=== PATIENT | male | born 1995 | race Caucasian/White ===

== ENCOUNTER 2023-12-30 02:36 | Emergency (ER) | payer OTHER ==
[~2023-12-30] VITALS: Ht 175.3 cm; Wt 68.0 kg
[~2023-12-30 02:36] MED LIST: Bactrim Ds Tab1 EACH PO; CEPH500 PO; KETO10 PO; Norco 5-325 Ta1 EACH PO
[2023-12-30 03:01] VITALS: BP 143/89
[2023-12-30] MEDS ORDERED: Trimethoprim/Sulfamethoxazole DS Tab PO ONE (03:30)
[2023-12-30] MEDS ORDERED: OxyCODONE 10/Acetamin 325 TABLET PO ONE (03:30)
[2023-12-30 03:42] LABS: BASOPHILS ABSOLUTE AUTO 0.03 K/mm3 (0.00-0.23); BASOPHILS PERCENT AUTO 0 % (0-2); EOSINOPHILS PERCENT AUTO 2 % (0-6); Hematocrit 38.1 % (37.0-53.0); Hemoglobin 12.8 g/dL (13.5-17.5); IMMATURE GRAN ABSOLUTE AUTO 0.04 K/mm3 (0.00-0.10); IMMATURE GRAN PERCENT AUTO 0 % (0-1); LYMPHOCYTES ABSOLUTE AUTO 1.76 K/mm3 (0.84-5.20); LYMPHOCYTES PERCENT AUTO 17 % (21-46); MONOCYTES ABSOLUTE AUTO 0.79 K/mm3 (0.16-1.47); MONOCYTES PERCENT AUTO 8 % (4-13); Mean Corpuscular HGB 29.8 pg (26.0-34.0); Mean Corpuscular HGB Conc 33.6 g/dL (31.5-36.5); Mean Corpuscular Volume 89 fL (80-100); Mean Platelet Volume 9.4 fL (9.1-12.4); NEUTROPHILS ABSOLUTE AUTO 7.58 K/mm3 (1.96-9.15); NEUTROPHILS PERCENT AUTO 73 % (41-73); Platelet Count 306 K/mm3 (150-400); RDW Coefficient Variation 12.5 % (11.7-14.2); Red Blood Cell Count 4.29 M/mm3 (4.30-5.90)
[2023-12-30 04:09] LABS: Bun/Creatinine Ratio 17.6 (12.0-20.0); C-REACTIVE PROTEIN, EXT RANGE 3.6 mg/dL (0.000-0.300); Calcium, Blood 9.2 mg/dL (8.5-10.1); Creatinine, Blood 0.91 mg/dL (0.60-1.20); Potassium, Blood 3.6 mmol/L (3.5-5.5)
[2023-12-30] MEDS ORDERED: SULTRIDS PO (04:33)
[2023-12-30] MEDS ORDERED: ACET500 PO (04:34)
== END 2023-12-30 05:15 | disposition home or self-care (01) ==
LOC: ER 02:36
PROVIDERS: Emergency Medicine
DX: L03.012 Cellulitis of left finger (principal); F17.210 Nicotine dependence, cigarettes, uncomplicated
CPT/HCPCS: 73140; 80048; 85025; 85651; 86140; 99283-25; A9270